=== PATIENT | male | born 1945 | race Caucasian/White ===

== ENCOUNTER 2017-04-10 08:57 | Day surgery (SDC) | payer MEDICARE, OTHER ==
[2017-04-09 16:44] VITALS: BMI 23.0
[2017-04-10 10:15] LABS: #Basophils 0.1 thou/uL (0.0-0.2); #Eosinphils 0.1 thou/uL (0.0-0.7); #Monocytes 0.7 thou/uL (0.11-0.59); #Neutrophils 4.4 thou/uL (1.40-6.50); %Basophils 0.7 % (0.0-1.0); %Eosinophils 1.9 % (0.0-10.0); %Lymphocytes 27.8 % (21.0-51.0); %Monocytes 9.9 % (0.0-10.0); Hematocrit 47.2 % (42.0-52.0); Mean Platelet Volume 7.4 fL (7.4-10.4); Red Blood Cell (RBC) Count 4.93 mill/uL (4.70-6.10); White Blood Cell (WBC) Count 7.3 thou/uL (4.8-10.8)
[2017-04-10 10:20] LABS: Prothrombin Time 17.4 SEC (12.0-14.7)
[2017-04-10 10:21] LABS: PTT 42.8 SEC (22.9-36.1)
[2017-04-10 10:27] LABS: Anion Gap 8 mmol/L (10-20); BUN (Urea Nitrogen) 14 mg/dL (8.4-25.7); Calc. Creatinine Clearance 85 mL/min (70-130); Calcium 9.4 mg/dL (7.8-10.44); Carbon Dioxide 33 mmol/L (23-31); Chloride 104 mmol/L (98-107); Estimated GFR-MDRD Greater than 90
--- NOTE | 2017-04-10 12:24 | EKG ---
Test Reason : PREOP Blood Pressure : / mmHG Vent. Rate : 080 BPM Atrial Rate : 080 BPM P-R Int : 000 ms QRS Dur : 090 ms QT Int : 392 ms P-R-T Axes : 059 075 074 degrees QTc Int : 452 ms Electronic atrial pacemaker When compared with ECG of 28-MAR-2014 13:55, Electronic atrial pacemaker has replaced Atrial fibrillation Vent. rate has decreased BY 44 BPM Nonspecific T wave abnormality no longer evident in Inferior leads Confirmed by DR. Jam HERNANDEZ ([id number]) on 04/10/2017 12:24:18 PM Referred By: PIERRE Confirmed By:DR. Jam HERNANDEZ
[2017-04-10] MEDS ORDERED: CEFAZOLIN/Water 2 GM/20 ML SYRINGE ONE (13:15)
[2017-04-10] MEDS ORDERED: Fentanyl 100 MCG/2 ML VIAL ONE (13:20)
[2017-04-10] MEDS ORDERED: Propofol 1,000 MG/100 ML VIAL IV ONE (13:20)
[2017-04-10] MEDS ORDERED: Iopamidol 370 76% 100 ML VIAL ONE (13:23)
[2017-04-10] MEDS ORDERED: PHENYLEPHRINE-NS 100 MCG/ML 10 ML SYRINGE ONE (13:58)
[2017-04-10] MEDS ORDERED: Sodium Chloride 0.9% 10 ML ONE (14:55)
--- NOTE | 2017-04-10 18:19 | RAD ---
PORTABLE CHEST: 04/10/17 HISTORY: Assess defibrillator lead placement. AICD leads have been placed via the left subclavian. No pneumothorax. There are chronic lung changes which are stable. Heart size within normal range. IMPRESSION: No acute lung process. POS: [facility]
== END 2017-04-10 17:30 | disposition home or self-care (01) ==
LOC: CCL 08:57
PROVIDERS: ATTEND Internal Medicine Cardiovascular Disease
DX: I42.0 Dilated cardiomyopathy (principal); I11.0 Hypertensive heart disease with heart failure; I50.9 Heart failure, unspecified; I48.0 Paroxysmal atrial fibrillation; M48.00 Spinal stenosis, site unspecified; F17.210 Nicotine dependence, cigarettes, uncomplicated; Z79.01 Long term (current) use of anticoagulants; Z79.899 Other long term (current) drug therapy; Z95.810 Presence of automatic (implantable) cardiac defibrillator; Z98.890 Other specified postprocedural states
CPT/HCPCS: 33249; 36005; 71010; 75820; 80048; 85025; 85610; 85730; 93005; 93641; C1721; C1777; 93010; A4216; J2704; J3010; J3490

== ENCOUNTER 2017-05-01 09:50 | Outpatient (CLI) | payer MEDICARE, OTHER ==
--- NOTE | 2017-05-01 10:25 | RAD ---
TWO VIEWS CHEST: Date: 05-01-17 Comparison: 07-09-16 History: Dyspnea. FINDINGS: No pneumothorax, pleural fluid, focal consolidation, or alveolar edema. The lungs are hyperinflated w ith diffuse increase linear and interstitial density throughout both lungs. Multi-lead AICD is presen t, stable. Lungs are hyperinflated on the lateral exam. IMPRESSION: Hyperinflated lungs with increased linear interstitial density. Findings suggest COPD in the proper c linical setting. POS: [facility]
== END 2017-05-01 09:51 | disposition home or self-care (01) ==
LOC: RAD 09:50
PROVIDERS: ATTEND Internal Medicine Critical Care Medicine
DX: R06.00 Dyspnea, unspecified (principal); J98.4 Other disorders of lung
CPT/HCPCS: 71020

== ENCOUNTER 2018-03-19 13:09 | Emergency (ER) | payer MEDICARE, OTHER ==
[~2018-03-19 13:09] MED LIST: ISOVUE-370 76%-LOCM 1 ML ONE
[2018-03-19] MEDS ORDERED: methylPREDNISolone Sod Succ/PF 125 MG/2 ML VIAL ONE (13:30)
[2018-03-19 13:41] LABS: #Basophils 0.1 thou/uL (0.0-0.2); #Lymphocytes 0.8 thou/uL (1.20-3.40); #Monocytes 0.5 thou/uL (0.11-0.59); #Neutrophils 4.2 thou/uL (1.40-6.50); %Basophils 2.1 % (0.0-1.0); %Eosinophils 0.8 % (0.0-10.0); %Lymphocytes 14.6 % (21.0-51.0); %Neutrophils 73.5 % (42.0-75.0); Hemoglobin 15.8 g/dL (14.0-18.0); Mean Corpuscular HGB CONC 32.5 g/dL (32.0-36.0); Mean Corpuscular Volume 95.4 fL (78.0-98.0); Mean Platelet Volume 7.7 fL (7.4-10.4); Platelet Count 127 thou/uL (130-400); RBC Distribution Width 11.9 % (11.5-14.5); Red Blood Cell (RBC) Count 5.09 mill/uL (4.70-6.10); White Blood Cell (WBC) Count 5.7 thou/uL (4.8-10.8)
[2018-03-19 14:01] LABS: ALT (SGPT) 12 U/L (8-55); AST (SGOT) 20 U/L (5-34); Albumin 4.7 g/dL (3.4-4.8); Alkaline Phosphatase 91 U/L (40-150); Anion Gap 14 mmol/L (10-20); BUN (Urea Nitrogen) 14 mg/dL (8.4-25.7); Bilirubin, Total 0.8 mg/dL (0.2-1.2); CK (CPK) 84 U/L (30-200); Calc. Creatinine Clearance 0 mL/min (70-130); Calcium 9.9 mg/dL (7.8-10.44); Carbon Dioxide 30 mmol/L (23-31); Chloride 94 mmol/L (98-107); Estimated GFR-MDRD Greater than 90; Globulin 3.3 g/dL (2.4-3.5); Glucose 109 mg/dL (83-110); Potassium 3.9 mmol/L (3.5-5.1); Sodium 134 mmol/L (136-145)
[2018-03-19 14:07] LABS: CKMB 2.1 ng/mL (0-6.6); Troponin I Less than 0.010 ng/mL (< 0.028)
--- NOTE | 2018-03-19 14:39 | RAD ---
PORTABLE CHEST: Date: 03/19/18 PROVIDED CLINICAL HISTORY: Chest pain. FINDINGS: Comparison made with the study dated 05/01/17. Cardiac and mediastinal silhouette is unchanged in appearance. Nodular density overlies the left mid lung zone laterally, incompletely characterized on the basis of this study. Vascular calcification an d left subclavian cardiac pacing device are again seen. Emphysematous changes are noted. No evidence for pleural fluid or pneumothorax. IMPRESSION: Nodular density overlying the left mid lung zone, incompletely characterized on the basis of this temo dy. Correlation with chest CT is recommended. CODE T. POS: [facility]
--- NOTE | 2018-03-19 16:02 | CT ---
CT PULMONARY ANGIOGRAM WITH IV CONTRAST AND 3D POSTPROCESSING: HISTORY: COPD, dyspnea. FINDINGS: There is good contrast opacification of the pulmonary arterial vasculature without filling defects to suggest pulmonary embolism. No aneurysmal dilatation of the thoracic aorta or dissection is seen. No pleural or pericardial effusions are identified. A few prominent mediastinal lymph nodes are pres ent measuring up to 1 cm. There are emphysematous changes in the lungs bilaterally. There is a tiny 4 mm nodule in the right lung apex. A 15 x 17 x 18 mm mass with spiculated margins is seen in the left upper lobe which is suspicious for malignancy. Subsegmental atelectasis is seen in the lateral aspect of the posterolateral aspect of the right lung close to the fissure. There are degenerative changes in the spine. IMPRESSION: 1. No CT evidence of pulmonary embolism. 2. Left upper lobe lung nodule suspicious for malignancy. Further evaluation with PET scan is recom mended. CODE T CODE LN POS: [facility]
== END 2018-03-19 17:28 | disposition home or self-care (01) ==
LOC: ERS 13:09
DX: J44.1 Chronic obstructive pulmonary disease with (acute) exacerbation (principal); R09.02 Hypoxemia; R91.8 Other nonspecific abnormal finding of lung field; F17.210 Nicotine dependence, cigarettes, uncomplicated; Z79.899 Other long term (current) drug therapy; Z79.82 Long term (current) use of aspirin
CPT/HCPCS: 71045; 71275; 80053; 82550; 82553; 84484; 85025; 93005; 94640; 94760; 96374; J2930; J7620

== ENCOUNTER 2018-03-21 21:14 | Inpatient (IN) | payer MEDICARE, OTHER ==
[2018-03-21 21:49] LABS: #Lymphocytes 1.2 thou/uL (1.20-3.40); #Monocytes 0.4 thou/uL (0.11-0.59); #Neutrophils 9.8 thou/uL (1.40-6.50); %Basophils 0.4 % (0.0-1.0); %Lymphocytes 10.4 % (21.0-51.0); %Monocytes 3.6 % (0.0-10.0); %Neutrophils 85.6 % (42.0-75.0); Hemoglobin 14.9 g/dL (14.0-18.0); Mean Corpuscular HGB CONC 32.8 g/dL (32.0-36.0); Mean Corpuscular Hemoglobin 31.2 pg (27.0-31.0); Mean Platelet Volume 7.4 fL (7.4-10.4); Platelet Count 155 thou/uL (130-400); RBC Distribution Width 11.8 % (11.5-14.5); Red Blood Cell (RBC) Count 4.79 mill/uL (4.70-6.10); White Blood Cell (WBC) Count 11.5 thou/uL (4.8-10.8)
[2018-03-21 22:12] LABS: ALT (SGPT) 13 U/L (8-55); AST (SGOT) 23 U/L (5-34); Albumin 4.3 g/dL (3.4-4.8); Alkaline Phosphatase 74 U/L (40-150); Anion Gap 12 mmol/L (10-20); BUN (Urea Nitrogen) 20 mg/dL (8.4-25.7); Bilirubin, Total 0.5 mg/dL (0.2-1.2); CK (CPK) 114 U/L (30-200); Calc. Creatinine Clearance 0 mL/min (70-130); Calcium 9.4 mg/dL (7.8-10.44); Carbon Dioxide 30 mmol/L (23-31); Chloride 94 mmol/L (98-107); Estimated GFR-MDRD Greater than 90; Globulin 2.9 g/dL (2.4-3.5); Glucose 150 mg/dL (83-110); Potassium 4.2 mmol/L (3.5-5.1); Protein, Total 7.2 g/dL (5.8-8.1); Sodium 132 mmol/L (136-145)
--- NOTE | 2018-03-21 22:15 | RAD ---
FRONTAL RADIOGRAPH CHEST 03/21/18 COMPARISON: 03/19/18 HISTORY: Short of breath. FINDINGS: As seen on the chest radiograph and CT examination of the chest performed two days prior, there is a mass within the mid left lung zone measuring 1.9 cm, suspicious for malignancy. There is a multilead AICD inserted via a left subclavian approach. There is no pneumothorax, pleural fluid, lobar consolid ation, or alveolar edema. There is increased linear interstitial density with pulmonary hyperinflatio n, consistent with COPD. IMPRESSION: Stable appearance of the chest as detailed above. POS: [facility]
[2018-03-21 22:16] LABS: Troponin I Less than 0.010 ng/mL (< 0.028)
[2018-03-21] MEDS ORDERED: methylPREDNISolone Sod Succ/PF 125 MG/2 ML VIAL ONE (22:22)
[2018-03-22] MEDS ORDERED: LEVAQUIN Pharmacy to Dose 1 EACH IVPB PRN (00:22)
[2018-03-22] MEDS ORDERED: Acetaminophen 325 MG TAB PO PRN (00:28)
[2018-03-22] MEDS ORDERED: Ondansetron ODT 4 MG TAB PO PRN (00:28)
[2018-03-22 01:38] VITALS: BMI 20.8
[2018-03-22] MEDS ORDERED: HYDROcodone/Acetaminophen 5/325 mg Tablet PO PRN ×2 (01:38→02:43)
[2018-03-22] MEDS ORDERED: Gabapentin 300 MG CAP PO SCH (01:45)
[2018-03-22] MEDS ORDERED: Sotalol HCl 80 MG TAB PO SCH (01:45)
[2018-03-22 01:48] LABS: #Basophils 0.1 thou/uL (0.0-0.2); #Lymphocytes 0.9 thou/uL (1.20-3.40); #Monocytes 0.2 thou/uL (0.11-0.59); #Neutrophils 7.7 thou/uL (1.40-6.50); %Basophils 0.7 % (0.0-1.0); %Lymphocytes 10.2 % (21.0-51.0); %Monocytes 1.7 % (0.0-10.0); %Neutrophils 87.5 % (42.0-75.0); Hemoglobin 14.2 g/dL (14.0-18.0); Mean Corpuscular HGB CONC 32.8 g/dL (32.0-36.0); Mean Corpuscular Volume 94.6 fL (78.0-98.0); Mean Platelet Volume 7.1 fL (7.4-10.4); Platelet Count 143 thou/uL (130-400); RBC Distribution Width 11.7 % (11.5-14.5); Red Blood Cell (RBC) Count 4.59 mill/uL (4.70-6.10); White Blood Cell (WBC) Count 8.9 thou/uL (4.8-10.8)
[2018-03-22 02:07] LABS: Troponin I Less than 0.010 ng/mL (< 0.028)
[2018-03-22 02:19] LABS: ALT (SGPT) 13 U/L (8-55); AST (SGOT) 20 U/L (5-34); Alkaline Phosphatase 65 U/L (40-150); Anion Gap 13 mmol/L (10-20); BUN (Urea Nitrogen) 18 mg/dL (8.4-25.7); Bilirubin, Total 0.5 mg/dL (0.2-1.2); Calc. Creatinine Clearance 84 mL/min (70-130); Calcium 9.3 mg/dL (7.8-10.44); Carbon Dioxide 31 mmol/L (23-31); Chloride 95 mmol/L (98-107); Estimated GFR-MDRD Greater than 90; Globulin 2.7 g/dL (2.4-3.5); Glucose 129 mg/dL (83-110); Potassium 4.3 mmol/L (3.5-5.1); Protein, Total 6.7 g/dL (5.8-8.1); Sodium 135 mmol/L (136-145)
--- NOTE | 2018-03-22 03:24 | HP ---
CHIEF COMPLAINT: Shortness of breath. HISTORY OF PRESENT ILLNESS: This is a 72-year-old male with past medical history of cardiomyopathy, status post pacemaker; chronic obstructive pulmonary disease being brought to our ED with chief compl aint of shortness of breath. Per the patient, he has been having shortness of breath since Friday, prior to the date of this admission. The patient states that the shortness of breath had been worsen ing, and the patient was sent to his primary care physician's office on Friday, and the patient wa s then instructed to come to the hospital. In the hospital, the patient was treated and a CT of the chest was done, which found the patient has a lung mass. The patient was supposed to follow up with his nuclear design engineer; however, the patient is having increased shortness of breath and productive cough with associated symptoms of chest tightness. Therefore, family decided to bring the patient back to the hospital to be evaluated. At this time, the patient denies any headache, fever, nausea, vomiting , palpitations, abdominal pain, hematuria, hematochezia, diarrhea. REVIEW OF SYSTEMS: Positive for shortness of breath with productive sputum, generalized weakness, ot herwise as documented in HPI. All other systems were reviewed and are negative. FAMILY HISTORY: Reviewed and noncontributory to this visit. PAST MEDICAL HISTORY: Cardiomyopathy, status post pacemaker; chronic obstructive pulmonary disease; mass found in the lungs. PAST SURGICAL HISTORY: Bilateral rotator cuff repair. SOCIAL HISTORY: The patient denies any ethanol use. The patient is a current tobacco smoker, has be en smoking for years, and the patient smokes 14 cigarettes a day. The patient lives at home with [facility]. KNOWN ALLERGIES: There is no known drug allergies. CURRENT MEDICATIONS: The patient takes fish oil, aspirin 81, Xarelto 20 mg, simvastatin 40 mg, sotal ol 80 mg, hydrocodone and acetaminophen, Spiriva Respimat, Symbicort, ProAir, Deltasone. PHYSICAL EXAMINATION: VITAL SIGNS: Blood pressure is 166/89, pulse of 72, respiratory rate of 15, temperature of 97.9, oxy gen saturation of 84 on room air. GENERAL APPEARANCE: The patient is lying in bed, does not appear to be in any acute distress. Alert and oriented x3, speaking in full sentences. The patient do have a nasal cannula in place. HEENT: Normocephalic, atraumatic. Pupils are equal, round, and reactive to light. Extraocular move ments are intact. No scleral icterus. No conjunctival pallor. NECK: Supple. Trachea is midline. No JVD noted. Full range of motion. LUNGS: The patient has rales and some wheezes that can be appreciated at the posterior lung weller. CARDIAC: Positive S1, S2. Regular rate and rhythm. No murmurs, no gallops, no rubs appreciated. ABDOMEN: Soft, nontender, nondistended. Positive bowel sounds in all quadrants. No palpable masses can be appreciated. BACK: Normal back. Full range of motion. No tenderness. EXTREMITIES: 5/5 upper extremity strength and 5/5 lower extremity strength with good pulses at the u pper and lower extremities bilaterally. No edema noted. NEUROLOGIC: Cranial nerves II-XII grossly intact. No neurologic deficits noted. SKIN: Warm, dry, and intact. EKG sinus rhythm with a rate of 69. Occasional PVCs noted. EMERGENCY DEPARTMENT COURSE: The patient was given Solu-Medrol 125 mg, aspirin 162, and DuoNeb treat ments. LABORATORY DATA: WBC 11.5, hemoglobin 14.9, hematocrit 45.5, platelet count 155. Sodium is 132, pot assium is 4.2, chloride is 94, carbon dioxide of 30, BUN of 20, creatinine 0.82, glucose of 150. BNP is 183. Troponin is less than 0.010 x2. ASSESSMENT AND PLAN: 1. This is a 72-year-old male with significant history of chronic obstructive pulmonary disease pres enting with cough, productive. At this point, we think the patient's cough is likely due to chronic obstructive pulmonary disease exacerbation. The patient is going to be started on Levaquin. We will continue the patient on steroids. We will give DuoNeb treatments. We have consulted nuclear design engineer. We will follow up with their recommendations. 2. Lung mass. CT scan of the chest showed the patient to have a lung mass. At this point, we have consulted Pulmonology. We will follow up nuclear design engineer's recommendation regarding the mass. [facility] nuclear design engineer outpatient, but the patient was having severe lona rtness of breath with chest tightness. Therefore, the patient was brought into our ED. The patient is currently having some wheezes and some rales that can be appreciated at the posterior lung weller. The patient has been given DuoNeb treatments. We will continue steroids. We will follow up with p ulmonologist's recommendations. 3. Coronary artery disease, status post implantable cardioverter-defibrillator. At this point, monica hampton. We will continue to monitor the patient. 4. Deep venous thrombosis and gastrointestinal prophylaxis.
[2018-03-22 04:41] LABS: Troponin I Less than 0.010 ng/mL (< 0.028)
[2018-03-22] MEDS: Nicotine 14 MG PATCH TD SCH (05:46)
[2018-03-22] MEDS: methylPREDNISolone Sod Succ/PF 125 MG/2 ML VIAL IVP SCH ×2 (05:46→13:57)
[2018-03-22] MEDS ORDERED: Mometasone/Formoterol 120 PUFF INHALER INH SCH (06:30)
[2018-03-22] MEDS: Mometasone/Formoterol 120 PUFF INHALER INH SCH ×2 (06:48→19:17)
[2018-03-22] MEDS: Sotalol HCl 80 MG TAB PO SCH ×2 (08:32→21:13)
[2018-03-22] MEDS: Rivaroxaban 10 MG TAB PO SCH (08:32)
[2018-03-22] MEDS: Famotidine/PF 20 mg/2ml Vial SLOW IVP SCH ×2 (08:35→21:14)
[2018-03-22] MEDS: Fish Oil 1,000 MG CAP PO SCH ×3 (08:35→21:13)
[2018-03-22] MEDS: Gabapentin 300 MG CAP PO SCH ×4 (08:35→21:13)
[2018-03-22] MEDS ORDERED: Prevnar 13-Val Conj/PF 0.5 ML SYRINGE IM ONE (09:00)
[2018-03-22] MEDS ORDERED: Non-Formulary Item 1 EACH (Fish Oil/Dha/Epa [Fish Oil 1,200 Mg Fish Oil] 1 CAP) PO SCH (09:00)
[2018-03-22] MEDS ORDERED: Non-Formulary Item 1 EACH (Budesonide-Formoterol [Symbicort 160-4.5] 1 PUFF) INH SCH (09:00)
[2018-03-22] MEDS ORDERED: Enoxaparin Sodium 40 MG/0.4 ML SYRINGE SC SCH (09:00)
--- NOTE | 2018-03-22 14:27 | CON ---
DATE OF CONSULTATION: 03/22/2018 He was on observation status. A 70 minutes time was spent in consult. Of that, greater than 50% was spent with the patient and/or the patient's hospital unit. REASON FOR CONSULTATION: Lung mass. HISTORY OF PRESENT ILLNESS: The patient is a 72-year-old male who has seen Dr. Rodriguez in the past. Kiesha burciaga was brought in last night for shortness of breath. He has been having problems for over a week. Kiesha burciaga saw his primary care provider earlier in the week and had a CT of the chest ordered, which demonstr ated a 1.8 cm spiculated left upper lobe nodule suspicious for malignancy. He had an appointment to see Dr. Rodriguez on 03/23/2018 at 1:00 p.m., he is not sure whether or not he can keep that. The patien t smokes about 1-1/2 pack per day and has been wheezing significantly for the past week. PAST MEDICAL HISTORY: 1. COPD. 2. Tobacco abuse. 3. Cardiomyopathy. PAST SURGICAL HISTORY: Rotator cuff repair. SOCIAL HISTORY: Smokes half pack per day, has been smoking for most of his life. Lives at home with his family. MEDICATIONS PRIOR TO ADMISSION: Aspirin 81 mg daily, Xarelto 20 mg daily, simvastatin 40 mg daily, s otalol 80 mg daily, hydrocodone as needed for pain, Spiriva Respimat 2 puffs daily, Symbicort 160/4.5 two puffs twice daily, ProAir 2 puffs every 6 hours, and he also was on Deltasone taper. REVIEW OF SYSTEMS: He has no fever, chills, nausea, vomiting. He has lost about 8 pounds of weight. No hematemesis, melena, hematochezia. No hemoptysis. PHYSICAL EXAMINATION: VITAL SIGNS: Temperature 97.5, pulse 60, respirations 20, O2 sat 92% on 2 liters, and blood pressure 166/70. GENERAL: The patient is a thin white male standing 5 feet 11, weight 151 pounds, BMI is 21. HEENT: Pupils react. Sclerae icteric. Oropharynx clear. NECK: No palpable adenopathy or JVD. LUNGS: Diffuse wheezing bilaterally. CARDIOVASCULAR: S1 and S2 regular. ABDOMEN: Soft. EXTREMITIES: No edema. CARDIAC: S1 and S2, regular, without murmur. LABORATORY DATA: White blood cell count 8.9, hematocrit 43.5, platelet count 143. Sodium 135, potas sium 4.3, BUN 18, creatinine 0.7, glucose 129. ASSESSMENT: 1. Chronic obstructive pulmonary disease with exacerbation. 2. Left upper lobe lung mass. 3. Tobacco abuse. PLAN: Most pressing issue is a COPD exacerbation. He needs to be treated with steroids, nebulizatio n treatments, and antibiotics. This can probably be done at home as his situation does not appear to be unstable. He should keep his appointment with Dr. Rodriguez. I think he will eventually need a CT n eedle biopsy of the lung mass given the size and location. He needs to quit smoking. I will inform Dr. Rodriguez of the patient's observation status in the hospital. At the patient's discharge for tomorr ow, he needs to keep his appointment to see Dr. Rodriguez in the near future.
--- NOTE | 2018-03-22 17:45 | PDOC.PN ---
- Subjective Encounter Start Date: 03/22/18 Encounter Start Time: 15:30 Pt seen for followup re: acute on chronic hypoxic respiratory failure. Reports occ cough, no sputum. No fevers. No nausea or vomiting. - Objective Resuscitation Status: Resuscitation Status FULL:Full Resuscitation MAR Reviewed: Yes Vital Signs & Weight: Vital Signs (12 hours) Temp Pulse Resp BP Pulse Ox 03/22/18 15:47 97.7 F 60 20 127/60 91 L 03/22/18 11:55 98.2 F 61 20 164/75 H 93 L 03/22/18 08:32 62 03/22/18 07:39 97.5 F L 62 20 166/70 H 92 L Weight Weight 151 lb 12.8 oz I&O: 03/21/18 03/22/18 03/23/18 06:59 06:59 06:59 Intake Total 350 Balance 350 Result Diagrams: 03/22/18 01:30 03/22/18 01:30 EKG Reviewed by me: Yes (Tele: AV paced) Phys Exam - Physical Examination Constitutional: NAD HEENT: moist MMs, sclera anicteric, oral pharynx no lesions, 2+ tonsils Neck: no nodes, no JVD, supple, full ROM Respiratory: no wheezing, no rales, no rhonchi, clear to auscultation bilateral Cardiovascular: RRR, no rub S1, S2 Gastrointestinal: soft, non-tender, no distention, positive bowel sounds Neurological: moves all 4 limbs Psychiatric: normal affect, A&O x 3 Dx/Plan (1) Acute on chronic respiratory failure with hypoxia Code(s): J96.21 - ACUTE AND CHRONIC RESPIRATORY FAILURE WITH HYPOXIA Status: Acute Comment: Pt does not use home oxygen. Likely due to COPD exacerbation, continue oxygen, antibiotics, steroids and bronchodilators. (2) COPD exacerbation Code(s): J44.1 - CHRONIC OBSTRUCTIVE PULMONARY DISEASE W (ACUTE) EXACERBATION Status: Acute Comment: continue antibiotics, steroids, oxygen and bronchodilators. (3) Lung mass Code(s): R91.8 - OTHER NONSPECIFIC ABNORMAL FINDING OF LUNG FIELD Status: Acute Comment: pulmonology service consulted (4) Dyslipidemia Code(s): E78.5 - HYPERLIPIDEMIA, UNSPECIFIED Status: Chronic Comment: continue statin (5) Cardiomyopathy Code(s): I42.9 - CARDIOMYOPATHY, UNSPECIFIED Status: Chronic Comment: s/p AICD, no sinister arrhythmias on interrogation (6) Tobacco abuse Code(s): Z72.0 - TOBACCO USE Status: Chronic Comment: continue nicotine patch - Plan * . Review of Systems - Review of Systems Constitutional: negative: fever, chills, sweats, weakness, malaise Respiratory: Cough, Dry. negative: Shortness of Breath, Hemoptysis, SOB with Excertion, Pleuritic Pain, Sputum, Wheezing Cardiovascular: negative: chest pain, palpitations, orthopnea, paroxysmal nocturnal dyspnea, edema, light headedness Gastrointestinal: negative: Nausea, Vomiting, Abdominal Pain, Diarrhea, Constipation, Melena, Hematochezia Genitourinary: negative: Dysuria, Frequency, Incontinence, Hematuria, Retention Skin: negative: Rash, Lesions, [place], Bruising - Medications/Allergies Allergies/Adverse Reactions: Allergies Allergy/AdvReac Type Severity Reaction Status Date / Time No Known Drug Allergies Allergy Verified 03/22/18 00:49 Medications: Current Medications Acetaminophen (Tylenol) 650 mg PO Q4H PRN PRN Reason: Headache/Fever/Mild Pain (1-3) Hydrocodone Bitart/Acetaminophen (Donaldson 5/325) 1 tab PO Q6H PRN PRN Reason: Moderate Pain (4-6) Albuterol/Ipratropium (Duoneb) 3 ml NEB Q4H PRN PRN Reason: Dyspnea Aspirin (Aspirin Chewable) 81 mg PO DAILY [facility] Last Admin: 03/22/18 08:35 Dose: 81 mg Famotidine (Pepcid) 20 mg SLOW IVP Q12HR [facility] Last Admin: 03/22/18 08:35 Dose: 20 mg Fish Oil (Fish Oil) 1,000 mg PO TID [facility] Last Admin: 03/22/18 16:50 Dose: 1,000 mg Gabapentin (Neurontin) 600 mg PO 5XD [facility] Last Admin: 03/22/18 16:50 Dose: 600 mg Levofloxacin 750 mg/ Device 150 mls @ 100 mls/hr IVPB Q24HR@0200 [facility] Last Admin: 03/22/18 02:01 Dose: 150 mls Methylprednisolone Sodium Succinate (Solu-Medrol) 60 mg IVP Q6HR [facility] Last Admin: 03/22/18 13:57 Dose: 60 mg Miscellaneous Medication (Pharmacy To Dose) 0 each IVPB PRN PRN PRN Reason: [facility] Pharmacy to Dose Mometasone Furoate/Formoterol Fumar (Dulera 200 Mcg/5 Mcg Inhaler) 1 puff INH BID-RT [facility] Last Admin: 03/22/18 06:48 Dose: 1 puff Nicotine (Nicoderm Patch) 14 mg TD Q24HR [facility] Last Admin: 03/22/18 05:46 Dose: 14 mg Ondansetron HCl (Zofran Odt) 4 mg PO Q6H PRN PRN Reason: Nausea/Vomiting Rivaroxaban (Xarelto) 20 mg PO DAILY [facility] Last Admin: 03/22/18 08:32 Dose: 20 mg Simvastatin (Zocor) 40 mg PO HS [facility] Sodium Chloride (Flush - Normal Saline) 10 ml IVF PRN PRN PRN Reason: Saline Flush Last Admin: 03/22/18 02:02 Dose: 10 ml Sodium Chloride (Flush - Normal Saline) 10 ml IVF Q12HR [facility] Last Admin: 03/22/18 08:39 Dose: 10 ml Sotalol HCl (Betapace) 80 mg PO BID [facility] Last Admin: 03/22/18 08:32 Dose: 80 mg
[2018-03-22] MEDS: Simvastatin 40 MG TAB PO SCH (21:14)
[2018-03-23] MEDS: Gabapentin 300 MG CAP PO SCH ×6 (00:58→23:50)
[2018-03-23 04:57] LABS: Hemoglobin 14.7 g/dL (14.0-18.0); Platelet Count 161 thou/uL (130-400)
[2018-03-23 05:09] LABS: Calc. Creatinine Clearance 93 mL/min (70-130); Estimated GFR-MDRD Greater than 90
[2018-03-23] MEDS: Nicotine 14 MG PATCH TD SCH (05:34)
[2018-03-23] MEDS: Mometasone/Formoterol 120 PUFF INHALER INH SCH ×2 (07:35→19:10)
[2018-03-23] MEDS: Fish Oil 1,000 MG CAP PO SCH ×3 (08:34→20:54)
[2018-03-23] MEDS: Rivaroxaban 10 MG TAB PO SCH (08:34)
[2018-03-23] MEDS: Famotidine/PF 20 mg/2ml Vial SLOW IVP SCH ×2 (08:34→20:53)
[2018-03-23] MEDS: Sotalol HCl 80 MG TAB PO SCH ×2 (08:35→20:54)
--- NOTE | 2018-03-23 18:34 | PDOC.PN ---
- Subjective Encounter Start Date: 03/23/18 Encounter Start Time: 09:40 Pt seen for followup re: acute on chronic hypoxic respiratory failure. Feels better today, still needing oxygen. Cough+, no sputum. - Objective Resuscitation Status: Resuscitation Status FULL:Full Resuscitation MAR Reviewed: Yes Vital Signs & Weight: Vital Signs (12 hours) Temp Pulse Resp BP Pulse Ox 03/23/18 15:35 97.5 F L 72 16 116/56 L 92 L 03/23/18 11:19 97.6 F 60 18 120/59 L 93 L 03/23/18 07:35 61 12 03/23/18 07:19 97.6 F 61 18 117/59 L 94 L Weight Admit Weight 151 lb 12.8 oz Weight 151 lb 12.8 oz I&O: 03/22/18 03/23/18 03/24/18 06:59 06:59 06:59 Intake Total 467 287 6338 Output Total 300 Balance 350 630 804 Result Diagrams: 03/23/18 04:40 03/23/18 04:40 EKG Reviewed by me: Yes (Tele: AV-paced) Phys Exam - Physical Examination Constitutional: NAD HEENT: moist MMs Neck: supple Respiratory: clear to auscultation bilateral Cardiovascular: RRR Gastrointestinal: soft Neurological: moves all 4 limbs Psychiatric: normal affect Skin: no rash Dx/Plan (1) Acute on chronic respiratory failure with hypoxia Code(s): J96.21 - ACUTE AND CHRONIC RESPIRATORY FAILURE WITH HYPOXIA Status: Acute Comment: Pt still needing supplemental oxygen, may need home oxygen if no improvement tomorrow (2) COPD exacerbation Code(s): J44.1 - CHRONIC OBSTRUCTIVE PULMONARY DISEASE W (ACUTE) EXACERBATION Status: Acute Comment: on antibiotics, steroids, oxygen and bronchodilators. (3) Lung mass Code(s): R91.8 - OTHER NONSPECIFIC ABNORMAL FINDING OF LUNG FIELD Status: Acute Comment: appreciate pulmonology service input (4) Dyslipidemia Code(s): E78.5 - HYPERLIPIDEMIA, UNSPECIFIED Status: Chronic Comment: on statin (5) Cardiomyopathy Code(s): I42.9 - CARDIOMYOPATHY, UNSPECIFIED Status: Chronic Comment: no sinister arrhythmias on AICD interrogation (6) Tobacco abuse Code(s): Z72.0 - TOBACCO USE Status: Chronic Comment: on nicotine patch - Plan * . Appetite improved with steroids, dietitian to see re: weight loss and poor oral intake. Review of Systems - Review of Systems Respiratory: Cough. negative: Dry, Shortness of Breath, Hemoptysis, SOB with Excertion, Pleuritic Pain, Sputum, Wheezing Cardiovascular: negative: chest pain, palpitations, orthopnea, paroxysmal nocturnal dyspnea, edema, light headedness - Medications/Allergies Allergies/Adverse Reactions: Allergies Allergy/AdvReac Type Severity Reaction Status Date / Time No Known Drug Allergies Allergy Verified 03/22/18 00:49 Medications: Current Medications Acetaminophen (Tylenol) 650 mg PO Q4H PRN PRN Reason: Headache/Fever/Mild Pain (1-3) Hydrocodone Bitart/Acetaminophen (Anna 5/325) 1 tab PO Q6H PRN PRN Reason: Moderate Pain (4-6) Albuterol/Ipratropium (Duoneb) 3 ml NEB Q4H PRN PRN Reason: Dyspnea Aspirin (Aspirin Chewable) 81 mg PO DAILY [facility] Last Admin: 03/23/18 08:34 Dose: 81 mg Famotidine (Pepcid) 20 mg SLOW IVP Q12HR [facility] Last Admin: 03/23/18 08:34 Dose: 20 mg Fish Oil (Fish Oil) 1,000 mg PO TID [facility] Last Admin: 03/23/18 15:39 Dose: 1,000 mg Gabapentin (Neurontin) 600 mg PO 5XD [facility] Last Admin: 03/23/18 15:39 Dose: 600 mg Levofloxacin (Levaquin) 500 mg PO 0600 [facility] Miscellaneous Medication (Pharmacy To Dose) 0 each IVPB PRN PRN PRN Reason: [facility] Pharmacy to Dose Mometasone Furoate/Formoterol Fumar (Dulera 200 Mcg/5 Mcg Inhaler) 1 puff INH BID-RT [facility] Last Admin: 03/23/18 07:35 Dose: 1 puff Nicotine (Nicoderm Patch) 14 mg TD Q24HR [facility] Last Admin: 03/23/18 05:34 Dose: 14 mg Ondansetron HCl (Zofran Odt) 4 mg PO Q6H PRN PRN Reason: Nausea/Vomiting Prednisone (Prednisone) 40 mg PO QA-[facility] Rivaroxaban (Xarelto) 20 mg PO DAILY [facility] Last Admin: 03/23/18 08:34 Dose: 20 mg Simvastatin (Zocor) 40 mg PO HS [facility] Last Admin: 03/22/18 21:14 Dose: 40 mg Sodium Chloride (Flush - Normal Saline) 10 ml IVF PRN PRN PRN Reason: Saline Flush Last Admin: 03/22/18 02:02 Dose: 10 ml Sodium Chloride (Flush - Normal Saline) 10 ml IVF Q12HR [facility] Last Admin: 03/23/18 08:34 Dose: 10 ml Sotalol HCl (Betapace) 80 mg PO BID [facility] Last Admin: 03/23/18 08:35 Dose: 80 mg
--- NOTE | 2018-03-23 19:20 | PRG ---
DATE OF SERVICE: 03/23/2018 SUBJECTIVE: Sharlene's events have been reviewed. Apparently, he had a viral gastrointestinal illness that was followed by diffuse arthralgias and myalgias, which was then followed by increasing wheezin g. He was seen in the emergency room and a CT scan was done and he was discharged home at his [facility]. He came back 2 days later and was readmitted says he is feeling better and wants to go home. OBJECTIVE: VITAL SIGNS: He is afebrile, heart rate 72, respiratory rate 16, oximetry is 92% on 2 liters, 94 ear lier on 2 liters, blood pressure 116/56. LUNGS: Remarkable for distant breath sounds. CARDIOVASCULAR: Regular rhythm. ABDOMEN: Soft. IMPRESSION: 1. Chronic obstructive pulmonary disease exacerbation triggered by a viral illness. We will switch him to p.o. antibiotics. 2. Small lung mass, this will be worked up as an outpatient.
[2018-03-23] MEDS: Simvastatin 40 MG TAB PO SCH (20:54)
[2018-03-24] MEDS: Nicotine 14 MG PATCH TD SCH (05:55)
[2018-03-24] MEDS: Mometasone/Formoterol 120 PUFF INHALER INH SCH (07:57)
[2018-03-24] MEDS ORDERED: predniSONE 20 MG TAB PO SCH (08:00)
[2018-03-24] MEDS: Gabapentin 300 MG CAP PO SCH ×2 (09:06→11:50)
[2018-03-24] MEDS: Sotalol HCl 80 MG TAB PO SCH (09:07)
[2018-03-24] MEDS: Fish Oil 1,000 MG CAP PO SCH (09:07)
[2018-03-24] MEDS: Rivaroxaban 10 MG TAB PO SCH (09:08)
[2018-03-24] MEDS: Famotidine/PF 20 mg/2ml Vial SLOW IVP SCH (11:16)
[2018-03-24 14:29] VITALS: BP 147/69; TEMP 98
--- NOTE | 2018-03-24 16:29 | PRG ---
DATE OF SERVICE: 03/24/2018. OBJECTIVE: GENERAL: Mr. Su is afebrile, heart rate 60, respiratory rate is 18, oximetry is 94 on 2 liters, blood pressure 147/69. Intake and output is positive 934. LUNGS: Distant and clear. HEART: Regular rhythm. ABDOMEN: Soft. I have written a prescription for an antibiotic and a prednisone taper. I will set him up for a PET imaging. He will follow up with me in 2 weeks for his COPD exacerbation and his PET results. I discussed smoking cessation with him. this will not help any for his lung mass, but it is an issue with regards to his COPD exacerbation. DELFIN
== END 2018-03-24 17:54 | disposition home or self-care (01) | DRG 190 ==
LOC: ERS 21:14 → 2NO 03-22 00:14 → 2SW 03-22 00:33 → OBSVTOIN 03-22 13:36 → 2NO 03-22 19:53
PROVIDERS: ADMIT Internal Medicine; ATTEND Internal Medicine
DX: J44.1 Chronic obstructive pulmonary disease with (acute) exacerbation (principal); J96.21 Acute and chronic respiratory failure with hypoxia; I42.9 Cardiomyopathy, unspecified; R91.8 Other nonspecific abnormal finding of lung field; F17.210 Nicotine dependence, cigarettes, uncomplicated; I25.10 Atherosclerotic heart disease of native coronary artery without angina pectoris; E78.5 Hyperlipidemia, unspecified; Z95.0 Presence of cardiac pacemaker
CPT/HCPCS: 36415; 71045; 71275; 80053; 82550; 82553; 82565; 83880; 84484; 85014; 85018; 85025; 85049; 90471; 90662; 90670; 93005; 94640; 94664; 94760; 96374; A4216; G0008; G0009; J1956; J2920; J2930; J7506; J7620; S0028

== ENCOUNTER 2018-04-02 11:50 | Outpatient (CLI) | payer MEDICARE, OTHER ==
--- NOTE | 2018-04-02 15:52 | PET ---
PET SCAN WITH CT ATTENUATION CORRECTION: HISTORY: Left upper lobe lung mass. COMPARISON: None. CORRELATION: Chest CT dated 03/26/18. CT angio chest dated 03/19/18. TECHNIQUE: PET scanning with CT attenuation correction is performed from the base of the brain to the proximal t highs following the intravenous administration of 10.7 mCi [id number]. FINDINGS: HEAD/NECK: No abnormal FDG localization. CHEST: There is FDG avidity associated with a left upper lobe nodule which was measured to be 1.7 x 1.5 cm. On the previous CT, there was mild spiculation. Currently, this mass has a maximum SUV of 6.3. No add itional areas of abnormal FDG localization are noted in the chest. There is no evidence of hilar or c ontralateral lung FDG avidity. ABDOMEN/PELVIS: There is no abnormal FDG avidity in the abdomen or pelvis. Specifically, no abnormal FDG avidity in e ither adrenal gland. OSSEOUS STRUCTURES: No abnormal FDG localization in the osseous structures. CT used for attenuation correction demonstrates thickening along the right major fissure. IMPRESSION: Solitary hypermetabolic focus in the left upper lobe. POS: [facility]
== END 2018-04-02 11:51 | disposition home or self-care (01) ==
LOC: PET 11:50
PROVIDERS: ATTEND Internal Medicine Critical Care Medicine
DX: R91.8 Other nonspecific abnormal finding of lung field (principal); C34.90 Malignant neoplasm of unspecified part of unspecified bronchus or lung
CPT/HCPCS: 78815; A9552

== ENCOUNTER 2018-04-21 08:54 | Day surgery (SDC) | payer MEDICARE, OTHER ==
[2018-04-21 10:01] VITALS: BP 158/77; TEMP 98.6
[2018-04-21 12:35] VITALS: BMI 22.0
--- NOTE | 2018-04-21 12:49 | RAD ---
INSPIRATORY/EXPIRATORY PORTABLE CHEST: Date: 04-21-18 History: Post biopsy of left lung nodule. Comparison: 03-21-18 FINDINGS: A multi-lead left subclavian AICD device remains place. Cardiac silhouette and pulmonary vasculature are within normal limits. The lungs are hyperexpanded with lucency seen within the upper lung zones l ikely related to bolus emphysematous changes. Pulmonary nodule in the left midlung zone is seen with adjacent parenchymal opacity likely secondary to recent biopsy. No pneumothorax or pleural effusion i s identified. Vascular calcification is seen in the thoracic aorta. No other interval change. IMPRESSION: Pulmonary nodule left midlung zone with adjacent parenchymal opacity likely related to recent biopsy. No pneumothorax or pleural effusion is seen. POS: [facility]
--- NOTE | 2018-04-21 14:13 | CT ---
CT GUIDED LUNG MASS BIOPSY: Date; 04/21/18 HISTORY: Lung mass. COMPARISON: PET CT dated 04/02/18. FINDINGS: The patient was brought to the CT suite, All questions were answered. The patient's left chest was pr epped and draped in the normal sterile fashion. Informed consent was obtained. Timeout performed. 3 mL of buffered lidocaine was instilled into the superficial and deep soft tissues. Using CT guidanc e, the left lung nodule was accessed. A total of two 18 gauge 1.1 cm cores were obtained. Pathology c onfirmed adequacy. IMPRESSION: Technically successful CT guided lung mass biopsy. POS: [facility]
--- NOTE | 2018-04-23 09:32 | CT ---
CT GUIDED LUNG MASS BIOPSY: Date; 04/21/18 HISTORY: Lung mass. COMPARISON: PET CT dated 04/02/18. FINDINGS: The patient was brought to the CT suite, All questions were answered. The patient's left chest was pr epped and draped in the normal sterile fashion. Informed consent was obtained. Timeout performed. 3 mL of buffered lidocaine was instilled into the superficial and deep soft tissues. Using CT guidanc e, the left lung nodule was accessed. A total of two 18 gauge 1.1 cm cores were obtained. Pathology c onfirmed adequacy. No pneumothorax. IMPRESSION: Technically successful CT guided lung mass biopsy.
== END 2018-04-21 13:05 | disposition home or self-care (01) ==
LOC: CT 08:54
PROVIDERS: ATTEND Internal Medicine Critical Care Medicine
PROC: 0BDG4ZX Extraction of Left Upper Lung Lobe, Percutaneous Endoscopic Approach, Diagnostic (ICD-10-PCS; principal; 2018-04-21)
DX: C34.12 Malignant neoplasm of upper lobe, left bronchus or lung (principal); J44.9 Chronic obstructive pulmonary disease, unspecified; F17.210 Nicotine dependence, cigarettes, uncomplicated; Z79.01 Long term (current) use of anticoagulants; Z79.82 Long term (current) use of aspirin; Z79.899 Other long term (current) drug therapy
CPT/HCPCS: 32405; 71045; 77012; 88305; 88333; 88341; 88342; 88360

== ENCOUNTER 2018-05-15 10:30 | Outpatient (CLI) | payer MEDICARE, OTHER ==
--- NOTE | 2018-05-15 13:56 | CT ---
CT HEAD WITH AND WITHOUT CONTRAST: 05/15/2018 HISTORY: Small cell lung cancer. Evaluate for intracranial metastatic disease. COMPARISON: None. TECHNIQUE: Serial axial CT imaging at 5 mm intervals, from the vertex through the skull base, with and without I V contrast. FINDINGS: The imaged paranasal sinuses/mastoid air cells appear well aerated. There is atherosclerotic calcifi cation of the cavernous carotid arteries. No acute osseous abnormality is noted. Noncontrast enhanced head CT demonstrates no intracranial hemorrhage, midline shift, mass effect, or ventricular enlargement. The post contrast imaging demonstrates no abnormal enhancement. IMPRESSION: No acute findings. POS: [facility]
== END 2018-05-15 10:31 | disposition home or self-care (01) ==
LOC: BICCT 10:30
PROVIDERS: ATTEND Radiology Radiation Oncology
DX: C34.90 Malignant neoplasm of unspecified part of unspecified bronchus or lung (principal)
CPT/HCPCS: 70470; 82565

== ENCOUNTER 2018-12-10 09:58 | Outpatient (CLI) | payer MEDICARE, OTHER ==
--- NOTE | 2018-12-10 10:22 | RAD ---
EXAM: Chest 2 views: HISTORY: Dyspnea COMPARISON: 05/01/2017 FINDINGS: There is a normal-sized cardiomediastinal silhouette. The pacemaker is unchanged in position. Hypere xpansion of the lungs may be secondary to COPD. There is no evidence of consolidation, mass, or pleural effusion. Degenerative changes are seen in the spine. IMPRESSION: No evidence of acute cardiopulmonary disease
== END 2018-12-10 09:59 | disposition home or self-care (01) ==
LOC: RAD 09:58
PROVIDERS: ATTEND Internal Medicine Critical Care Medicine
DX: R06.00 Dyspnea, unspecified (principal)
CPT/HCPCS: 71046

== ENCOUNTER 2019-01-05 09:48 | Outpatient (CLI) | payer MEDICARE, OTHER ==
--- NOTE | 2019-01-05 11:35 | CT ---
CT Chest W Con History: c34.12 lung cancer Comparison: Chest radiograph December 10, 2018. CT chest 2018 Findings: The lingular mass measures up to 13 mm in greatest dimension, previously 18 mm. Mild increa se cicatrization adjacent to this mass with some scarring along the left major fissure. Moderate centrilobular emphysema. No new superimposed suspicious mass. No mediastinal adenopathy. No pericardial effusion. Hypodensity superior pole left kidney measures fluid attenuation suggestive of a cyst. No thoracic spine compression deformity. No suspicious osteolytic or osteoblastic lesions. Impression: Partial response to therapy with size decrease lingular mass. No new superimposed suspici ous pulmonary nodules. No mediastinal adenopathy.
[2019-01-05] MEDS ORDERED: ISOVUE-370 76%-LOCM 1 ML ONE (13:34)
== END 2019-01-05 09:49 | disposition home or self-care (01) ==
LOC: BICCT 09:48
PROVIDERS: ATTEND Internal Medicine Hematology & Oncology
DX: C34.12 Malignant neoplasm of upper lobe, left bronchus or lung (principal); R91.8 Other nonspecific abnormal finding of lung field
CPT/HCPCS: 71260; Q9966

== ENCOUNTER 2019-12-28 11:06 | Outpatient (CLI) | payer MEDICARE, OTHER ==
--- NOTE | 2019-12-28 14:05 | CT ---
CT OF THE CHEST PERFORMED WITH INTRAVENOUS CONTRAST ENHANCEMENT: 12/28/19 HISTORY: Follow-up of lung cancer. COMPARISON: 01/05/19 exam. There are atherosclerotic changes of the aorta. Precarinal and prevascular nodes are stable in appear ance as compared to the prior examination. The prevascular node is 6 cm in short axis dimension. Pre carinal nodes are approximately 10 mm in short axis dimension. These findings are stable. No hilar ly mphadenopathy is seen. Changes of centrilobular emphysema are noted. Changes are most pronounced in t he upper lobes. The lingular mass has decreased slightly in size. It measures approximately 9 x 13 mm as compared to 10 x 15 mm. Changes are minimal. There is increased parenchymal change surrounding this area which m ay be the sequela of the radiation. These nodular parenchymal changes extend to abut the major fissur e. The surrounding parenchymal density is probably related to radiation. No pleural effusion. The visualized liver parenchyma shows no focal findings. Right and left adrenal glands are normal. IMPRESSION: Fairly stable appearance to the lingular mass having a slightly less rounded configuration but change in size is minimal. Parenchymal changes surrounding this area have increased but this may be sequela of radiation. No change in the small mediastinal nodes. No lytic or blastic bone lesions. POS: [facility]
[2019-12-28] MEDS ORDERED: Iopamidol-370 76% 500 ML 1 ML ONE (16:27)
== END 2019-12-28 11:07 | disposition home or self-care (01) ==
LOC: BICCT 11:06
PROVIDERS: ATTEND Internal Medicine Hematology & Oncology
DX: C34.90 Malignant neoplasm of unspecified part of unspecified bronchus or lung (principal)
CPT/HCPCS: 71260; Q9967

== ENCOUNTER 2020-04-26 09:25 | Outpatient (CLI) | payer MEDICARE, OTHER ==
--- NOTE | 2020-04-26 09:41 | RAD ---
XR Chest Pa Lat STANDARD HISTORY: Dyspnea COMPARISON: 12/10/2018 FINDINGS: The heart size is normal. A left-sided AICD is present. The lungs are well expanded without lobar consolidation, pneumothorax or pleural effusions. There is a vague opacity in the left peripheral midlung in the region of the nodule noted on the CT scan of 12/28/2019. This would be kat r evaluated with CT scan.
== END 2020-04-26 09:26 | disposition home or self-care (01) ==
LOC: BICRAD 09:25
PROVIDERS: ATTEND Internal Medicine Critical Care Medicine
DX: R06.00 Dyspnea, unspecified (principal)
CPT/HCPCS: 71046

== ENCOUNTER 2020-10-05 18:01 | Inpatient (IN) | payer MEDICARE, OTHER ==
[2020-10-05] MEDS ORDERED: cefTRIAXone\\ROCEPHIN 1 GM VIAL ONE (18:27)
[2020-10-05] MEDS ORDERED: Dexamethasone 4 mg/ml Vial ONE (18:27)
[2020-10-05] MEDS ORDERED: Acetaminophen 500 MG TAB ONE (18:27)
[2020-10-05] MEDS ORDERED: Azithromycin 500 MG VIAL ONE (18:27)
[2020-10-05] MEDS ORDERED: Acetaminophen 650 MG Suppository ONE (18:36)
[2020-10-05 18:38] LABS: #Lymphocytes 0.9 thou/uL (1.20-3.40); #Neutrophils 11.4 thou/uL (1.40-6.50); %Lymphocytes 6.5 % (21.0-51.0); %Monocytes 7.5 % (0.0-10.0); Mean Corpuscular HGB CONC 32.6 g/dL (32.0-36.0); Mean Corpuscular Hemoglobin 31.9 pg (27.0-31.0); Mean Corpuscular Volume 97.8 fL (78.0-98.0); Mean Platelet Volume 7.6 fL (7.4-10.4); Platelet Count 120 thou/uL (130-400); Red Blood Cell (RBC) Count 4.39 mill/uL (4.70-6.10); White Blood Cell (WBC) Count 13.2 thou/uL (4.8-10.8)
[2020-10-05 18:45] LABS: INR-International Normal Ratio 2.1; PTT 46.7 sec (22.9-36.1); Prothrombin Time 24.4 sec (12.0-14.7)
[2020-10-05 19:02] LABS: ALT (SGPT) 10 U/L (8-55); AST (SGOT) 17 U/L (5-34); Albumin 3.9 g/dL (3.4-4.8); Alkaline Phosphatase 69 U/L (40-110); Anion Gap 13 mmol/L (10-20); BUN (Urea Nitrogen) 19 mg/dL (8.4-25.7); Bilirubin, Total 0.8 mg/dL (0.2-1.2); Calc. Creatinine Clearance 0 mL/min (70-130); Calcium 9.7 mg/dL (7.8-10.44); Carbon Dioxide 30 mmol/L (23-31); Chloride 94 mmol/L (98-107); Globulin 2.9 g/dL (2.4-3.5); Glucose 123 mg/dL (83-110); Lipase Less than 4 U/L (8-78); Protein, Total 6.8 g/dL (5.8-8.1); Sodium 133 mmol/L (136-145)
[2020-10-05 20:37] LABS: SARS-CoV-2 NAA Rapid Test Not Detected (NotDetected)
[2020-10-05] MEDS ORDERED: Acetaminophen 325 MG TAB PO PRN (21:25)
[2020-10-05] MEDS ORDERED: Ondansetron PF 4 MG/2 ML Vial IVP PRN (21:25)
[2020-10-05] MEDS ORDERED: Vancomycin 1.5 GRAM/300 ML BAG 1.5 GM in Premix Bag 1 BAG IVPB SCH (22:00)
[2020-10-05 23:05] VITALS: BMI 20.8
[2020-10-05 23:23] LABS: Bacteria/HPF None Seen HPF (None Seen); Bilirubin Negative (Negative); Blood, Urine Negative (Negative); Clarity Clear (Clear); Glucose, Urine (Dipstick) 30 mg/dL (Negative); Ketone, Urine Negative (Negative); Leukocyte Negative Leu/uL (Negative); Nitrite Negative (Negative); Protein, Urine (Dipstick) Negative (Neg-Trace); RBC/HPF 0-3 HPF (0-3); Specific Gravity, Urine 1.015 (1.002-1.036); Squamous Epithelial 0-3 HPF (0-3); Urobilinogen Normal mg/dL (Less than 2); WBC/HPF 0-3 HPF (0-3)
[2020-10-05 23:25] LABS: Urine Culture Reflex No No
[2020-10-06] MEDS: Ipratropium Bromide 2.5 ml Neb NEB SCH ×3 (00:02→14:03)
[2020-10-06 04:39] LABS: #Lymphocytes 0.8 thou/uL (1.20-3.40); #Monocytes 0.5 thou/uL (0.11-0.59); #Neutrophils 9.5 thou/uL (1.40-6.50); %Basophils 0.3 % (0.0-1.0); %Eosinophils 0.1 % (0.0-10.0); %Lymphocytes 6.9 % (21.0-51.0); %Monocytes 4.3 % (0.0-10.0); %Neutrophils 88.4 % (42.0-75.0); Hemoglobin 12.8 g/dL (14.0-18.0); Mean Corpuscular HGB CONC 31.5 g/dL (32.0-36.0); Mean Corpuscular Volume 98.5 fL (78.0-98.0); Mean Platelet Volume 7.3 fL (7.4-10.4); Platelet Count 118 thou/uL (130-400); RBC Distribution Width 12.1 % (11.5-14.5); Red Blood Cell (RBC) Count 4.12 mill/uL (4.70-6.10); White Blood Cell (WBC) Count 10.8 thou/uL (4.8-10.8)
[2020-10-06 04:44] LABS: Anion Gap 11 mmol/L (10-20); BUN (Urea Nitrogen) 15 mg/dL (8.4-25.7); Calc. Creatinine Clearance 85 mL/min (70-130); Calcium 8.9 mg/dL (7.8-10.44); Carbon Dioxide 28 mmol/L (23-31); Chloride 100 mmol/L (98-107); Glucose 145 mg/dL (83-110); Potassium 4.1 mmol/L (3.5-5.1); Sodium 135 mmol/L (136-145)
[2020-10-06] MEDS: Cefepime 1 GM in Sodium Chloride 0.9% 100 ML IVPB SCH ×2 (06:10→14:14)
[2020-10-06] MEDS: Aspirin Chewable 81 MG TAB PO SCH (08:59)
[2020-10-06] MEDS: Sotalol HCl 80 MG TAB PO SCH ×2 (08:59→20:40)
[2020-10-06] MEDS: Rivaroxaban 10 MG TAB PO SCH (08:59)
[2020-10-06] MEDS: Famotidine 20 MG TAB PO SCH ×2 (08:59→20:39)
[2020-10-06] MEDS: Digoxin 0.125 MG TAB PO SCH (09:00)
[2020-10-06] MEDS: methylPREDNISolone Sod Succ 40 MG VIAL IVP SCH ×2 (09:00→20:40)
[2020-10-06] MEDS: Vancomycin 1 GM in Premix Bag 1 BAG IVPB SCH (14:14)
[2020-10-06] MEDS: Simvastatin 40 MG TAB PO SCH (20:40)
[2020-10-07] MEDS: Vancomycin 1 GM in Premix Bag 1 BAG IVPB SCH (00:17)
[2020-10-07] MEDS ORDERED: Gabapentin 300 MG CAP PO SCH (03:30)
[2020-10-07 03:34] LABS: #Basophils 0.1 thou/uL (0.0-0.2); #Lymphocytes 0.8 thou/uL (1.20-3.40); #Monocytes 0.5 thou/uL (0.11-0.59); #Neutrophils 11.4 thou/uL (1.40-6.50); %Basophils 0.4 % (0.0-1.0); %Monocytes 4.2 % (0.0-10.0); %Neutrophils 89.4 % (42.0-75.0); Hemoglobin 12.5 g/dL (14.0-18.0); Mean Corpuscular HGB CONC 32.9 g/dL (32.0-36.0); Mean Corpuscular Volume 97.3 fL (78.0-98.0); Mean Platelet Volume 7.4 fL (7.4-10.4); Platelet Count 128 thou/uL (130-400); Red Blood Cell (RBC) Count 3.91 mill/uL (4.70-6.10); White Blood Cell (WBC) Count 12.8 thou/uL (4.8-10.8)
[2020-10-07 03:58] LABS: Anion Gap 10 mmol/L (10-20); BUN (Urea Nitrogen) 14 mg/dL (8.4-25.7); Calc. Creatinine Clearance 86 mL/min (70-130); Calcium 8.5 mg/dL (7.8-10.44); Carbon Dioxide 29 mmol/L (23-31); Chloride 96 mmol/L (98-107); Glucose 134 mg/dL (83-110); Sodium 131 mmol/L (136-145)
[2020-10-07] MEDS: Ipratropium Bromide 2.5 ml Neb NEB SCH ×2 (06:42→07:35)
[2020-10-07] MEDS: Cefepime 1 GM in Sodium Chloride 0.9% 100 ML IVPB SCH ×2 (06:57→17:37)
[2020-10-07] MEDS ORDERED: HYDROcodone/Acetaminophen 5/325 mg Tablet PO PRN (08:08)
[2020-10-07] MEDS: Sotalol HCl 80 MG TAB PO SCH ×2 (08:42→21:15)
[2020-10-07] MEDS: Rivaroxaban 10 MG TAB PO SCH (08:42)
[2020-10-07] MEDS: Aspirin Chewable 81 MG TAB PO SCH (08:43)
[2020-10-07] MEDS: Famotidine 20 MG TAB PO SCH ×2 (08:43→21:14)
[2020-10-07] MEDS: methylPREDNISolone Sod Succ 40 MG VIAL IVP SCH ×2 (08:43→21:15)
[2020-10-07] MEDS: Digoxin 0.125 MG TAB PO SCH (08:43)
[2020-10-07] MEDS: Gabapentin 300 MG CAP PO SCH ×3 (12:26→21:14)
[2020-10-07] MEDS: DULoxetine 30 MG CAP PO SCH (12:27)
[2020-10-07] MEDS: Simvastatin 40 MG TAB PO SCH (21:14)
[2020-10-08] MEDS: Gabapentin 300 MG CAP PO SCH ×4 (00:29→15:55)
[2020-10-08 04:29] LABS: #Lymphocytes 0.8 thou/uL (1.20-3.40); #Monocytes 0.3 thou/uL (0.11-0.59); #Neutrophils 7.8 thou/uL (1.40-6.50); %Basophils 0.2 % (0.0-1.0); %Lymphocytes 8.6 % (21.0-51.0); %Monocytes 3.7 % (0.0-10.0); %Neutrophils 87.5 % (42.0-75.0); Hemoglobin 12.5 g/dL (14.0-18.0); Mean Corpuscular HGB CONC 31.6 g/dL (32.0-36.0); Mean Corpuscular Hemoglobin 30.6 pg (27.0-31.0); Mean Platelet Volume 7.1 fL (7.4-10.4); Platelet Count 139 thou/uL (130-400); RBC Distribution Width 11.8 % (11.5-14.5); Red Blood Cell (RBC) Count 4.07 mill/uL (4.70-6.10); White Blood Cell (WBC) Count 8.9 thou/uL (4.8-10.8)
[2020-10-08 04:50] LABS: Anion Gap 11 mmol/L (10-20); BUN (Urea Nitrogen) 15 mg/dL (8.4-25.7); Calc. Creatinine Clearance 93 mL/min (70-130); Calcium 8.4 mg/dL (7.8-10.44); Carbon Dioxide 29 mmol/L (23-31); Chloride 95 mmol/L (98-107); Glucose 133 mg/dL (83-110); Potassium 3.9 mmol/L (3.5-5.1); Sodium 131 mmol/L (136-145)
[2020-10-08] MEDS: Cefepime 1 GM in Sodium Chloride 0.9% 100 ML IVPB SCH (05:23)
[2020-10-08] MEDS: Rivaroxaban 10 MG TAB PO SCH (08:16)
[2020-10-08] MEDS: Sotalol HCl 80 MG TAB PO SCH (08:16)
[2020-10-08] MEDS: Famotidine 20 MG TAB PO SCH (08:17)
[2020-10-08] MEDS: DULoxetine 30 MG CAP PO SCH (08:17)
[2020-10-08] MEDS: Digoxin 0.125 MG TAB PO SCH (08:17)
[2020-10-08] MEDS: Aspirin Chewable 81 MG TAB PO SCH (08:17)
[2020-10-08] MEDS: methylPREDNISolone Sod Succ 40 MG VIAL IVP SCH (08:18)
[2020-10-08] MEDS ORDERED: Nicotine 21 MG PATCH TD SCH (11:00)
[2020-10-08 11:28] VITALS: TEMP 97.6
[2020-10-08 15:54] VITALS: BP 140/70
[2020-10-09] MEDS ORDERED: predniSONE 20 MG TAB PO SCH (08:00)
== END 2020-10-08 16:15 | disposition home or self-care (01) | DRG 871 ==
LOC: ERS 18:01 → IMCU/EMU 19:51 → 2NO 10-07 22:41
PROVIDERS: ADMIT Internal Medicine; ATTEND Family Medicine
DX: A41.9 Sepsis, unspecified organism (principal); J18.9 Pneumonia, unspecified organism; J96.01 Acute respiratory failure with hypoxia; I42.8 Other cardiomyopathies; J44.1 Chronic obstructive pulmonary disease with (acute) exacerbation; J44.0 Chronic obstructive pulmonary disease with (acute) lower respiratory infection; I48.20 Chronic atrial fibrillation, unspecified; E87.1 Hypo-osmolality and hyponatremia; I47.2 Ventricular tachycardia; R65.20 Severe sepsis without septic shock; E78.5 Hyperlipidemia, unspecified; I48.0 Paroxysmal atrial fibrillation; G89.29 Other chronic pain; I50.9 Heart failure, unspecified; D64.9 Anemia, unspecified; D69.6 Thrombocytopenia, unspecified; Z20.822 Contact with and (suspected) exposure to COVID-19; F17.210 Nicotine dependence, cigarettes, uncomplicated; Z85.118 Personal history of other malignant neoplasm of bronchus and lung; Z92.21 Personal history of antineoplastic chemotherapy; Z92.3 Personal history of irradiation; Z95.810 Presence of automatic (implantable) cardiac defibrillator
CPT/HCPCS: 0240U; 36415; 71045; 80048; 80053; 81001; 83605; 83690; 83735; 83880; 85025; 85610; 85730; 87040; 87070; 87205; 93005; 94640; 94660; 96365; 96366; 96375; J0456; J0692; J0696; J1100; J2920; J3370; J3490; J7620

== ENCOUNTER 2020-11-15 07:30 | Observation (INO) | payer MEDICARE, OTHER ==
[2020-11-15 08:15] LABS: #Basophils 0.1 thou/uL (0.0-0.2); #Eosinphils 0.1 thou/uL (0.0-0.7); #Lymphocytes 1.4 thou/uL (1.20-3.40); #Monocytes 0.8 thou/uL (0.11-0.59); #Neutrophils 4.4 thou/uL (1.40-6.50); %Eosinophils 0.8 % (0.0-10.0); %Lymphocytes 20.6 % (21.0-51.0); %Monocytes 12.4 % (0.0-10.0); %Neutrophils 65.2 % (42.0-75.0); Hemoglobin 13.6 g/dL (14.0-18.0); Mean Corpuscular HGB CONC 32.5 g/dL (32.0-36.0); Mean Corpuscular Hemoglobin 31.8 pg (27.0-31.0); Mean Corpuscular Volume 97.8 fL (78.0-98.0); Mean Platelet Volume 7.5 fL (7.4-10.4); Platelet Count 158 thou/uL (130-400); RBC Distribution Width 12.5 % (11.5-14.5); Red Blood Cell (RBC) Count 4.28 mill/uL (4.70-6.10); White Blood Cell (WBC) Count 6.7 thou/uL (4.8-10.8)
[2020-11-15 08:26] LABS: INR-International Normal Ratio 1.2; PTT 40.7 sec (22.9-36.1); Prothrombin Time 15.9 sec (12.0-14.7)
[2020-11-15 08:38] LABS: Anion Gap 11 mmol/L (10-20); BUN (Urea Nitrogen) 10 mg/dL (8.4-25.7); Calc. Creatinine Clearance 73 mL/min (70-130); Calcium 9.5 mg/dL (7.8-10.44); Carbon Dioxide 30 mmol/L (23-31); Chloride 98 mmol/L (98-107); Glucose 99 mg/dL (83-110); Potassium 3.8 mmol/L (3.5-5.1); Sodium 135 mmol/L (136-145)
[2020-11-15] MEDS ORDERED: Iopamidol 370 76% 50 ML VIAL FS ONE (08:46)
[2020-11-15] MEDS ORDERED: Heparin 10,000 UNITS/ 10 ML VIAL ONE (11:49)
[2020-11-15] MEDS ORDERED: Fentanyl 100 MCG/2 ML VIAL ONE ×2 (11:50→16:15)
[2020-11-15] MEDS ORDERED: Rocuronium Bromide 10 MG/ML (10ML VIAL) ONE (12:06)
[2020-11-15] MEDS ORDERED: PHENYLEPHRINE-NS 100 MCG/ML 10 ML SYRINGE ONE ×2 (12:06→14:25)
[2020-11-15] MEDS ORDERED: Calcium Chloride 1 GM/10 ML Abboject SYRINGE ONE (12:06)
[2020-11-15] MEDS ORDERED: PROPOFOL 200 MG/20 ML VIAL ONE (12:06)
[2020-11-15] MEDS ORDERED: ePHEDrine Sulfate 50 MG/10 ML VIAL ONE (12:06)
[2020-11-15] MEDS ORDERED: Lidocaine 1% PF 5 ML VIAL ONE (12:06)
[2020-11-15] MEDS ORDERED: Ondansetron PF 4 MG/2 ML Vial ONE (12:06)
[2020-11-15] MEDS ORDERED: Glycopyrrolate 0.2 MG/ML 5 ML SYRINGE ONE (12:06)
[2020-11-15] MEDS ORDERED: Heparin 25,000 units/D5W 500 ML ONE (12:56)
[2020-11-15] MEDS ORDERED: Isoproterenol 0.2 MG/1 ML AMP ONE (13:17)
[2020-11-15] MEDS ORDERED: Protamine Sulfate 50 MG/5 ML VIAL ONE (15:38)
[2020-11-15] MEDS ORDERED: Promethazine HCl 25 MG/ML VIAL IM PRN (16:13)
[2020-11-15] MEDS ORDERED: Promethazine HCl 25 MG/ML VIAL SLOW IVP PRN (16:13)
[2020-11-15] MEDS ORDERED: Ondansetron HCl/PF 4 MG/2 ML Vial IVP PRN (16:13)
[2020-11-15] MEDS ORDERED: HYDROcodone/Acetaminophen 5/325 mg Tablet PO PRN (17:02)
[2020-11-15] MEDS ORDERED: Ketorolac Tromethamine 30 MG/ML VIAL IVP PRN (17:20)
[2020-11-15] MEDS: Sucralfate 1 GM TAB PO SCH (17:42)
[2020-11-15] MEDS: Ipratropium Bromide 2.5 ml Neb NEB SCH (20:17)
[2020-11-15] MEDS: Mometasone 200 MCG/Formoterol 5 MCG 120 PUFF INHALER INH SCH (20:20)
[2020-11-15] MEDS ORDERED: Atorvastatin Calcium 20 MG TAB PO SCH (21:00)
[2020-11-15] MEDS: Gabapentin 300 MG CAP PO SCH (22:18)
[2020-11-15] MEDS: Fish Oil 1,000 MG CAP PO SCH (22:19)
[2020-11-16] MEDS: Ipratropium Bromide 2.5 ml Neb NEB SCH ×2 (00:03→08:08)
[2020-11-16] MEDS: Gabapentin 300 MG CAP PO SCH ×2 (01:10→08:08)
[2020-11-16] MEDS: Sucralfate 1 GM TAB PO SCH ×2 (01:11→06:31)
[2020-11-16 07:58] VITALS: BP 127/57; TEMP 97.7
[2020-11-16] MEDS: Mometasone 200 MCG/Formoterol 5 MCG 120 PUFF INHALER INH SCH (08:05)
[2020-11-16] MEDS: Fish Oil 1,000 MG CAP PO SCH (08:08)
[2020-11-16] MEDS ORDERED: Sotalol HCl 80 MG TAB PO SCH (09:00)
[2020-11-16] MEDS ORDERED: DULoxetine 30 MG CAP PO SCH (09:00)
[2020-11-16] MEDS ORDERED: Aspirin Chewable 81 MG TAB PO SCH (09:00)
[2020-11-16] MEDS ORDERED: Rivaroxaban 10 MG TAB PO SCH (17:00)
== END 2020-11-16 11:30 | disposition home or self-care (01) ==
LOC: CCL 07:30 → 2SW 08:00
PROVIDERS: ADMIT Internal Medicine Cardiovascular Disease; ATTEND Internal Medicine Cardiovascular Disease
PROC: 02583ZZ Destruction of Conduction Mechanism, Percutaneous Approach (ICD-10-PCS; principal; 2020-11-15)
PROC: 02K83ZZ Map Conduction Mechanism, Percutaneous Approach (ICD-10-PCS; 2020-11-15)
PROC: 4A023FZ Measurement of Cardiac Rhythm, Percutaneous Approach (ICD-10-PCS; 2020-11-15)
PROC: 4A0234Z Measurement of Cardiac Electrical Activity, Percutaneous Approach (ICD-10-PCS; 2020-11-15)
DX: I48.19 Other persistent atrial fibrillation (principal); I48.3 Typical atrial flutter; I11.0 Hypertensive heart disease with heart failure; I50.22 Chronic systolic (congestive) heart failure; I42.0 Dilated cardiomyopathy; E78.5 Hyperlipidemia, unspecified; J43.9 Emphysema, unspecified; I49.3 Ventricular premature depolarization; Z87.891 Personal history of nicotine dependence; Z79.01 Long term (current) use of anticoagulants; Z79.82 Long term (current) use of aspirin; Z79.899 Other long term (current) drug therapy; Z95.810 Presence of automatic (implantable) cardiac defibrillator
CPT/HCPCS: 76942; 80048; 85025; 85347 ×2; 85610; 85730; 92960; 93005 ×2; 93613; 93623; 93656; 93657; 93662; 94640 ×4; C1732 ×3; C1759; 93010; G0378; J1644; J2405; J2704; J2720; J3010; Q9967

== ENCOUNTER 2020-11-18 12:15 | Inpatient (IN) | payer MEDICARE, OTHER ==
[2020-11-18 12:50] LABS: #Lymphocytes 1.1 thou/uL (1.20-3.40); #Neutrophils 7.2 thou/uL (1.40-6.50); %Basophils 0.5 % (0.0-1.0); %Eosinophils 0.4 % (0.0-10.0); %Monocytes 10.8 % (0.0-10.0); %Neutrophils 76.3 % (42.0-75.0); Hemoglobin 12.7 g/dL (14.0-18.0); Mean Corpuscular HGB CONC 33.4 g/dL (32.0-36.0); Mean Corpuscular Hemoglobin 32.3 pg (27.0-31.0); Mean Corpuscular Volume 96.7 fL (78.0-98.0); Mean Platelet Volume 7.5 fL (7.4-10.4); Platelet Count 141 thou/uL (130-400); RBC Distribution Width 12.3 % (11.5-14.5); Red Blood Cell (RBC) Count 3.93 mill/uL (4.70-6.10); White Blood Cell (WBC) Count 9.5 thou/uL (4.8-10.8)
[2020-11-18 13:05] LABS: ALT (SGPT) 15 U/L (8-55); AST (SGOT) 28 U/L (5-34); Albumin 3.7 g/dL (3.4-4.8); Alkaline Phosphatase 68 U/L (40-110); Anion Gap 11 mmol/L (10-20); BUN (Urea Nitrogen) 14 mg/dL (8.4-25.7); Bilirubin, Total 0.8 mg/dL (0.2-1.2); Calc. Creatinine Clearance 0 mL/min (70-130); Carbon Dioxide 31 mmol/L (23-31); Chloride 88 mmol/L (98-107); Globulin 2.9 g/dL (2.4-3.5); Glucose 103 mg/dL (83-110); Protein, Total 6.6 g/dL (5.8-8.1); Sodium 126 mmol/L (136-145)
[2020-11-18 13:23] LABS: INR-International Normal Ratio 1.5; PTT 41.4 sec (22.9-36.1); Prothrombin Time 18.1 sec (12.0-14.7)
[2020-11-18] MEDS ORDERED: Aspirin Chewable 81 MG TAB ONE (13:31)
[2020-11-18] MEDS ORDERED: Furosemide 20 MG/2 ML VIAL ONE (13:31)
[2020-11-18 13:33] LABS: CKMB 3.9 ng/mL (0-6.6)
[2020-11-18] MEDS ORDERED: Senokot S 8.6-50 MG TAB PO PRN (15:01)
[2020-11-18] MEDS ORDERED: Ondansetron PF 4 MG/2 ML Vial IVP PRN (15:01)
[2020-11-18] MEDS ORDERED: Acetaminophen 325 MG TAB PO PRN (15:01)
[2020-11-18] MEDS ORDERED: Ondansetron ODT 4 MG TAB PO PRN (15:01)
[2020-11-18 15:36] LABS: Magnesium 1.6 mg/dL (1.6-2.6); Phosphorus 2.4 mg/dL (2.3-4.7)
[2020-11-18 16:20] LABS: Critical Call Chem Troponin I RESULT DECREASING; Troponin I 0.747 ng/mL (< 0.028)
[2020-11-18] MEDS ORDERED: Magnesium 2 GM/50 ML 2 GM in Premix Bag 1 BAG IVPB SCH (16:30)
[2020-11-18 17:10] VITALS: BMI 20.3
[2020-11-18] MEDS ORDERED: Sotalol HCl 80 MG TAB PO SCH ×2 (17:30→21:00)
[2020-11-18] MEDS ORDERED: Potassium Chloride 20 MEQ TAB PO SCH (18:30)
[2020-11-18] MEDS ORDERED: Potassium Chloride 20 MEQ TAB PO PRN (18:35)
[2020-11-18] MEDS ORDERED: HYDROcodone/Acetaminophen 5/325 mg Tablet PO PRN (18:35)
[2020-11-18] MEDS ORDERED: Diltiazem 125 MG in Sodium Chloride 0.9% 100 ML IVPB SCH (18:45)
[2020-11-18] MEDS ORDERED: Mometasone 200 MCG/Formoterol 5 MCG 120 PUFF INHALER INH SCH (19:00)
[2020-11-18 19:15] LABS: Critical Call Chem Troponin I RESULT DECREASING; Troponin I 0.651 ng/mL (< 0.028)
[2020-11-18] MEDS ORDERED: Digoxin 0.5 MG/2 ML AMP SLOW IVP SCH ×2 (19:30→22:30)
[2020-11-18] MEDS: Gabapentin 300 MG CAP PO SCH ×2 (20:35→22:53)
[2020-11-18] MEDS: Fish Oil 1,000 MG CAP PO SCH (20:35)
[2020-11-18] MEDS: Atorvastatin Calcium 20 MG TAB PO SCH (20:35)
[2020-11-19] MEDS: Ipratropium Bromide 2.5 ml Neb NEB SCH ×4 (01:10→18:44)
[2020-11-19 05:09] LABS: #Lymphocytes 1.2 thou/uL (1.20-3.40); #Monocytes 0.8 thou/uL (0.11-0.59); #Neutrophils 4.9 thou/uL (1.40-6.50); %Basophils 0.3 % (0.0-1.0); %Eosinophils 0.7 % (0.0-10.0); %Monocytes 11.2 % (0.0-10.0); %Neutrophils 70.8 % (42.0-75.0); Hemoglobin 11.5 g/dL (14.0-18.0); Mean Corpuscular HGB CONC 32.5 g/dL (32.0-36.0); Mean Corpuscular Hemoglobin 31.5 pg (27.0-31.0); Mean Corpuscular Volume 97.1 fL (78.0-98.0); Mean Platelet Volume 7.4 fL (7.4-10.4); Platelet Count 132 thou/uL (130-400); RBC Distribution Width 12.1 % (11.5-14.5); Red Blood Cell (RBC) Count 3.63 mill/uL (4.70-6.10); White Blood Cell (WBC) Count 6.9 thou/uL (4.8-10.8)
[2020-11-19 05:40] LABS: Iron 27 ug/dL (65-175); Iron Binding Capacity, Total 224 mcg/dL (261-462)
[2020-11-19 05:48] LABS: Anion Gap 9 mmol/L (10-20); BUN (Urea Nitrogen) 12 mg/dL (8.4-25.7); Calc. Creatinine Clearance 93 mL/min (70-130); Calcium 8.3 mg/dL (7.8-10.44); Carbon Dioxide 35 mmol/L (23-31); Chloride 90 mmol/L (98-107); Glucose 90 mg/dL (83-110); Potassium 4.1 mmol/L (3.5-5.1); Sodium 130 mmol/L (136-145)
[2020-11-19] MEDS ORDERED: Furosemide 20 MG/2 ML VIAL SLOW IVP SCH (06:00)
[2020-11-19 06:04] LABS: Ferritin 140.48 ng/mL (22-322)
[2020-11-19] MEDS: Mometasone 200 MCG/Formoterol 5 MCG 120 PUFF INHALER INH SCH ×2 (06:57→18:40)
[2020-11-19] MEDS ORDERED: Magnesium 2 GM/50 ML 2 GM in Premix Bag 1 BAG IVPB SCH (08:00)
[2020-11-19] MEDS: Fish Oil 1,000 MG CAP PO SCH ×3 (08:35→20:25)
[2020-11-19] MEDS: Gabapentin 300 MG CAP PO SCH ×5 (08:36→23:49)
[2020-11-19] MEDS: Sotalol HCl 80 MG TAB PO SCH ×2 (08:36→20:25)
[2020-11-19] MEDS: Rivaroxaban 10 MG TAB PO SCH (08:37)
[2020-11-19] MEDS: Aspirin Chewable 81 MG TAB PO SCH (08:37)
[2020-11-19] MEDS: DULoxetine 30 MG CAP PO SCH (08:37)
[2020-11-19] MEDS ORDERED: Digoxin 0.125 MG TAB PO SCH (14:45)
[2020-11-19] MEDS: Atorvastatin Calcium 20 MG TAB PO SCH (20:25)
[2020-11-20] MEDS: Ipratropium Bromide 2.5 ml Neb NEB SCH ×4 (00:12→18:56)
[2020-11-20 04:34] LABS: Anion Gap 9 mmol/L (10-20); BUN (Urea Nitrogen) 14 mg/dL (8.4-25.7); Calc. Creatinine Clearance 89 mL/min (70-130); Calcium 8.5 mg/dL (7.8-10.44); Carbon Dioxide 36 mmol/L (23-31); Chloride 88 mmol/L (98-107); Glucose 93 mg/dL (83-110); Potassium 3.5 mmol/L (3.5-5.1); Sodium 129 mmol/L (136-145)
[2020-11-20] MEDS: Mometasone 200 MCG/Formoterol 5 MCG 120 PUFF INHALER INH SCH ×2 (07:16→18:53)
[2020-11-20 07:27] LABS: Magnesium 1.8 mg/dL (1.6-2.6); Phosphorus 2.2 mg/dL (2.3-4.7)
[2020-11-20] MEDS: Gabapentin 300 MG CAP PO SCH ×5 (08:13→23:47)
[2020-11-20] MEDS: Digoxin 0.125 MG TAB PO SCH (08:13)
[2020-11-20] MEDS: Rivaroxaban 10 MG TAB PO SCH (08:13)
[2020-11-20] MEDS: Fish Oil 1,000 MG CAP PO SCH (08:13)
[2020-11-20] MEDS: Sotalol HCl 80 MG TAB PO SCH ×2 (08:13→21:56)
[2020-11-20] MEDS: DULoxetine 30 MG CAP PO SCH (08:14)
[2020-11-20] MEDS: Ferrous Sulfate 325 MG TAB PO SCH (08:14)
[2020-11-20] MEDS: Aspirin Chewable 81 MG TAB PO SCH (08:14)
[2020-11-20] MEDS ORDERED: Potassium Phosphate 20 MMOL in Sodium Chloride 0.9% 250 ML 250 ML IVPB SCH (09:00)
[2020-11-20 09:05] LABS: Hemoglobin 12.9 g/dL (14.0-18.0); Platelet Count 173 thou/uL (130-400)
[2020-11-20 09:26] LABS: Calc. Creatinine Clearance 85 mL/min (70-130)
[2020-11-20] MEDS: Sucralfate 1 GM TAB PO SCH ×3 (11:35→21:56)
[2020-11-20] MEDS: Atorvastatin Calcium 20 MG TAB PO SCH (21:56)
[2020-11-21] MEDS: Ipratropium Bromide 2.5 ml Neb NEB SCH ×3 (00:20→13:40)
[2020-11-21 04:48] LABS: Anion Gap 10 mmol/L (10-20); BUN (Urea Nitrogen) 11 mg/dL (8.4-25.7); Calc. Creatinine Clearance 97 mL/min (70-130); Calcium 9.1 mg/dL (7.8-10.44); Carbon Dioxide 33 mmol/L (23-31); Chloride 88 mmol/L (98-107); Glucose 111 mg/dL (83-110); Potassium 3.6 mmol/L (3.5-5.1); Sodium 127 mmol/L (136-145)
[2020-11-21] MEDS: Mometasone 200 MCG/Formoterol 5 MCG 120 PUFF INHALER INH SCH (07:08)
[2020-11-21] MEDS: Sotalol HCl 80 MG TAB PO SCH (07:31)
[2020-11-21] MEDS: Ferrous Sulfate 325 MG TAB PO SCH (07:32)
[2020-11-21] MEDS: Rivaroxaban 10 MG TAB PO SCH (07:32)
[2020-11-21] MEDS: Sucralfate 1 GM TAB PO SCH ×2 (07:32→11:36)
[2020-11-21] MEDS: Gabapentin 300 MG CAP PO SCH ×2 (07:32→11:36)
[2020-11-21] MEDS: DULoxetine 30 MG CAP PO SCH (07:32)
[2020-11-21] MEDS: Aspirin Chewable 81 MG TAB PO SCH (07:32)
[2020-11-21] MEDS: Digoxin 0.125 MG TAB PO SCH (07:32)
[2020-11-21] MEDS ORDERED: PROPOFOL 20 ML ONE (08:09)
[2020-11-21] MEDS ORDERED: PROPOFOL 200 MG/20 ML VIAL ONE (08:38)
[2020-11-21 12:28] VITALS: BP 136/80; TEMP 97.6
== END 2020-11-21 15:00 | disposition home or self-care (01) | DRG 273 ==
LOC: ERS 12:15 → 2NO 13:58
PROVIDERS: ADMIT Student in an Organized Health Care Education/Training Program; ATTEND Student in an Organized Health Care Education/Training Program
PROC: 02583ZZ Destruction of Conduction Mechanism, Percutaneous Approach (ICD-10-PCS; 2020-11-15)
PROC: 4A023FZ Measurement of Cardiac Rhythm, Percutaneous Approach (ICD-10-PCS; 2020-11-15)
PROC: 4A0234Z Measurement of Cardiac Electrical Activity, Percutaneous Approach (ICD-10-PCS; 2020-11-15)
PROC: 02K83ZZ Map Conduction Mechanism, Percutaneous Approach (ICD-10-PCS; 2020-11-15)
PROC: 5A2204Z Restoration of Cardiac Rhythm, Single (ICD-10-PCS; principal; 2020-11-21)
PROC: B24BZZ4 Ultrasonography of Heart with Aorta, Transesophageal (ICD-10-PCS; 2020-11-21)
DX: I97.89 Other postprocedural complications and disorders of the circulatory system, not elsewhere classified (principal); J96.01 Acute respiratory failure with hypoxia; I50.23 Acute on chronic systolic (congestive) heart failure; I48.19 Other persistent atrial fibrillation; E87.1 Hypo-osmolality and hyponatremia; I42.9 Cardiomyopathy, unspecified; I48.3 Typical atrial flutter; I42.0 Dilated cardiomyopathy; I11.0 Hypertensive heart disease with heart failure; Z20.822 Contact with and (suspected) exposure to COVID-19; F17.210 Nicotine dependence, cigarettes, uncomplicated; E78.5 Hyperlipidemia, unspecified; M48.00 Spinal stenosis, site unspecified; D64.9 Anemia, unspecified; E83.42 Hypomagnesemia; I49.3 Ventricular premature depolarization; I48.0 Paroxysmal atrial fibrillation; R79.89 Other specified abnormal findings of blood chemistry; Z95.810 Presence of automatic (implantable) cardiac defibrillator; Z85.118 Personal history of other malignant neoplasm of bronchus and lung; Z79.82 Long term (current) use of aspirin; Z79.899 Other long term (current) drug therapy; Z79.01 Long term (current) use of anticoagulants; Z79.51 Long term (current) use of inhaled steroids; Z98.890 Other specified postprocedural states; Y83.8 Other surgical procedures as the cause of abnormal reaction of the patient, or of later complication, without mention of misadventure at the time of the procedure; J43.9 Emphysema, unspecified
CPT/HCPCS: 36415; 71045; 76942; 80048; 80053; 82553; 82607; 82728; 82746; 83540; 83550; 83735; 83880; 84100; 84484; 85014; 85018; 85025; 85049; 85347; 85610; 85730; 92960; 93005; 93010; 93306; 93312; 93613; 93623; 93656; 93657; 93662; 94640; 94760; 96374; C1732; C1759; G0378; J1160; J1644; J1940; J2405; J2704; J2720; J3010; J3475; J7050; Q9967

== ENCOUNTER 2020-12-21 10:48 | Outpatient (CLI) | payer MEDICARE, OTHER | END 2020-12-21 10:49 | disposition home or self-care (01) | LOC: BICCT 10:48 | PROVIDERS: ATTEND Internal Medicine Cardiovascular Disease | DX: R06.00 Dyspnea, unspecified (principal); I48.0 Paroxysmal atrial fibrillation; R91.1 Solitary pulmonary nodule; J98.4 Other disorders of lung; J90 Pleural effusion, not elsewhere classified; I70.0 Atherosclerosis of aorta; K55.1 Chronic vascular disorders of intestine; J43.9 Emphysema, unspecified; I25.10 Atherosclerotic heart disease of native coronary artery without angina pectoris; E04.2 Nontoxic multinodular goiter; M89.9 Disorder of bone, unspecified; N28.1 Cyst of kidney, acquired; K57.30 Diverticulosis of large intestine without perforation or abscess without bleeding; Z95.810 Presence of automatic (implantable) cardiac defibrillator | CPT/HCPCS: 71275 ==

== ENCOUNTER 2021-06-12 11:02 | Outpatient (CLI) | payer MEDICARE, OTHER ==
[~2021-06-12 11:02] MED LIST changes: -ISOVUE-370 76%-LOCM 1 ML ONE; +Iopamidol-370 76% 500 ML 1 ML ONE
[2021-06-12 11:34] LABS: Estimated GFR-MDRD - POC Greater than 90
== END 2021-06-12 11:03 | disposition home or self-care (01) ==
LOC: BICCT 11:02
PROVIDERS: ATTEND Internal Medicine Hematology & Oncology
DX: C34.12 Malignant neoplasm of upper lobe, left bronchus or lung (principal); R91.1 Solitary pulmonary nodule; J98.11 Atelectasis
CPT/HCPCS: 71260; 82565; Q9967

== ENCOUNTER 2021-06-22 09:47 | Outpatient (CLI) | payer MEDICARE, OTHER | END 2021-06-22 09:48 | disposition home or self-care (01) | LOC: PET 09:47 | PROVIDERS: ATTEND Internal Medicine Hematology & Oncology | DX: C34.12 Malignant neoplasm of upper lobe, left bronchus or lung (principal); R91.1 Solitary pulmonary nodule | CPT/HCPCS: 78815; A9552 ==

== ENCOUNTER 2021-07-06 05:59 | Day surgery (SDC) | payer MEDICARE, OTHER ==
[2021-07-05 13:38] VITALS: BMI 18.1
[2021-07-06] MEDS ORDERED: Midazolam HCl 2 mg/2 ml Vial ONE (06:31)
[2021-07-06] MEDS ORDERED: Fentanyl 100 MCG/2 ML VIAL ONE (06:31)
[2021-07-06 06:41] LABS: #Eosinphils 0.1 thou/uL (0.0-0.7); #Lymphocytes 1.8 thou/uL (1.20-3.40); #Monocytes 0.7 thou/uL (0.11-0.59); #Neutrophils 4.1 thou/uL (1.40-6.50); %Basophils 0.7 % (0.0-1.0); %Eosinophils 1.6 % (0.0-10.0); %Neutrophils 60.7 % (42.0-75.0); Hemoglobin 13.4 g/dL (14.0-18.0); Mean Platelet Volume 8.1 fL (7.4-10.4); Platelet Count 140 thou/uL (130-400); RBC Distribution Width 12.3 % (11.5-14.5); Red Blood Cell (RBC) Count 4.46 mill/uL (4.70-6.10); White Blood Cell (WBC) Count 6.8 thou/uL (4.8-10.8)
[2021-07-06] MEDS ORDERED: Lidocaine 1% (PF) 30 ML VIAL ONE (06:44)
[2021-07-06] MEDS ORDERED: Lidocaine 1% MPF 2 ML VIAL ONE (06:45)
[2021-07-06] MEDS ORDERED: Xylocaine 1% w/ Epi 1:100K 10 ML VIAL ONE (06:56)
[2021-07-06] MEDS ORDERED: CEFAZOLIN 1 GM VIAL ONE (07:19)
[2021-07-06] MEDS ORDERED: PROPOFOL 200 MG/20 ML VIAL ONE (07:32)
[2021-07-06] MEDS ORDERED: Glycopyrrolate 0.2 MG/ML 5 ML SYRINGE ONE (07:32)
[2021-07-06] MEDS ORDERED: PHENYLEPHRINE-NS 100 MCG/ML 10 ML SYRINGE ONE (07:32)
[2021-07-06] MEDS ORDERED: Rocuronium Bromide 10 MG/ML (10ML VIAL) ONE (07:32)
[2021-07-06] MEDS ORDERED: Calcium Chloride 1 GM/10 ML Abboject SYRINGE ONE (07:32)
[2021-07-06] MEDS ORDERED: HYDROcodone/Acetaminophen 5/325 mg Tablet ONE (09:43)
== END 2021-07-06 10:45 | disposition home or self-care (01) ==
LOC: SDC 05:59
PROVIDERS: ATTEND Thoracic Surgery (Cardiothoracic Vascular Surgery)
PROC: 07B74ZX Excision of Thorax Lymphatic, Percutaneous Endoscopic Approach, Diagnostic (ICD-10-PCS; principal; 2021-07-06)
DX: R91.1 Solitary pulmonary nodule (principal); C34.32 Malignant neoplasm of lower lobe, left bronchus or lung; I48.91 Unspecified atrial fibrillation; J43.9 Emphysema, unspecified; F17.210 Nicotine dependence, cigarettes, uncomplicated; I10 Essential (primary) hypertension; E78.5 Hyperlipidemia, unspecified; I42.9 Cardiomyopathy, unspecified; N39.0 Urinary tract infection, site not specified; Z79.01 Long term (current) use of anticoagulants; Z79.899 Other long term (current) drug therapy; Z95.810 Presence of automatic (implantable) cardiac defibrillator
CPT/HCPCS: 85025; 88184; 88305; 88307; 93005; 93010; J0690; J1642; J2001; J2250; J2704; J3010

== ENCOUNTER 2021-12-27 09:41 | Outpatient (CLI) | payer MEDICARE, OTHER ==
[2021-12-27] MEDS ORDERED: Iopamidol 370 76% 100 ML VIAL ONE (13:33)
== END 2021-12-27 09:42 | disposition home or self-care (01) ==
LOC: CT 09:41
PROVIDERS: ATTEND Radiology Radiation Oncology
DX: C34.32 Malignant neoplasm of lower lobe, left bronchus or lung (principal); J43.9 Emphysema, unspecified; J18.1 Lobar pneumonia, unspecified organism; J98.6 Disorders of diaphragm; J98.11 Atelectasis; Z92.3 Personal history of irradiation
CPT/HCPCS: 71260; 82565; Q9967

== ENCOUNTER 2022-07-10 10:03 | Outpatient (CLI) | payer MEDICARE, OTHER | END 2022-07-10 10:04 | disposition home or self-care (01) | LOC: BICCT 10:03 | PROVIDERS: ATTEND Radiology Radiation Oncology | DX: C34.92 Malignant neoplasm of unspecified part of left bronchus or lung (principal); R59.0 Localized enlarged lymph nodes; J98.09 Other diseases of bronchus, not elsewhere classified; J98.11 Atelectasis | CPT/HCPCS: 71260; 82565; Q9967 ==